=== PATIENT | male | born 1980 | race Caucasian/White ===

== ENCOUNTER 2018-02-22 21:51 | Emergency (ER) | payer OTHER, SELFPAY ==
[2018-02-22 21:58] VITALS: BP 131/95; PULSE 69; RESP 12; TEMP 37.1; O2SAT 99; BMI 17.4
--- NOTE | 2018-02-22 22:06 | ED_ITS ---
HPI - Seizure General Chief Complaint: Seizure Stated Complaint: Seizure Time Seen by Provider: 02/22/18 21:53 Source: patient Mode of arrival: EMS Limitations: no limitations History of Present Illness HPI Narrative: Patient is a 37-year-old male with a stated history of seizures. He states that he is not currently on any seizure medications because he states that they happen so infrequently that no provider has ever put him on them. He states that he has been evaluated multiple times by neurologist. He states that they have told him that he is having seizures but they do not have a specific etiology or diagnosis. He states that normally he has seizures that he does not remember. He states that today he was standing in line at the store when his right hand started to shake which then made his entire body shake. He states that he remembered the entire event. Had no loss of conscious. He states that he did bite the left side of his tongue. No loss of bowel or bladder. He feels like the situation lasted 30 sec or less. He was alert and oriented during the entire event and did not seem to have a postictal event afterwards. He was evaluated by the providers over on [facility]. Review of Systems Constitutional Reports body ache(s), Denies chills, Denies fatigue, Denies fever(s), Denies frequent falls, Denies headache(s) and Denies malaise Eyes Denies blurry vision and Denies diplopia ENT Ears, Nose, Mouth, and Throat: Denies vertigo, Denies dizziness, Denies headache (s) and Denies disequilibrium Cardiovascular Denies chest pain, Denies syncope and Denies dyspnea Respiratory Denies cough and Denies dyspnea Gastrointestinal Gastrointestinal: Denies abdominal pain, Denies nausea and Denies vomiting Musculoskeletal Denies tingling Comments: Muscle soreness ?all over? Integumentary/Breasts Denies lesions and Denies rash Neurologic Denies abnormal speech, Denies behavioral changes, Denies vertigo, Denies dizziness, Denies syncope, Denies frequent falls, Denies headache(s), Denies radicular pain, Reports convulsions, Reports seizure-like activity, Denies tingling, Denies paresthesias, Reports tremor(s) and Denies disequilibrium Psychiatric Denies behavioral changes Endocrine Denies fatigue Hematologic/Lymphatic Denies easy bleeding and Denies easy bruising [facility] Medical History Seizure-like activity (Acute) Surgical History No pertinent past surgical history (Acute) Social History Smoking Status: Current every day smoker Exam Initial Vital Signs Initial Vital Signs: Vital Signs Temperature 98.7 F 02/22/18 21:58 Pulse Rate 69 02/22/18 21:58 Respiratory Rate 12 02/22/18 21:58 Blood Pressure 131/95 H 02/22/18 21:58 Pulse Oximetry 99 02/22/18 21:58 Const General: cooperative, comfortable, well developed and No acute distress Orientation: alert, awake and oriented x3 HENMT Head: normal to inspection and normocephalic Mouth: other (Possible small abrasion to the left side of his tongue) Resp Effort & Inspection: normal respiratory effort Auscultation: clear to auscultation bilaterally Cardio Rate: regular rate Rhythm: regular rhythm Heart Sounds: no murmurs Pulses: radial pulses present GI Inspection: non-distended Palpation: soft, No firm and No tender Skin Lesions: no lesions Rashes: no rashes Neuro General: alert, awake and oriented x3 Cognition: normal cognition Speech: speech normal Motor: muscle tone normal throughout Sensory Exam: no sensory deficits noted Extrem General: normal to inspection, capillary refill normal and No edema Right upper extremity: normal to inspection Left upper extremity: normal to inspection Right lower extremity: normal to inspection Left lower extremity: normal to inspection Psych Appearance: grossly normal and well kempt Course Orders Ordered: ED Orders 02/22/18 22:00 Basic Metabolic Panel Stat Complete Blood Count AUTO DIFF Stat Vital Signs - 8 hr 02/22/18 21:58 02/22/18 22:08 02/22/18 22:39 Temperature 98.7 F Pulse Rate 69 68 20 L Respiratory Rate 12 14 19 Blood Pressure 131/95 H Blood Pressure [Right Arm] 128/89 139/80 Pulse Oximetry 99 99 100 MDM - Seizure Lab Data Attestation: I reviewed the patient's lab results. Result diagrams: 02/22/18 22:00 02/22/18 22:00 Lab Results 02/22/18 02/22/18 Range/Units 22:00 22:00 WBC 7.4 (4.5-11.0) X10^3/uL RBC 4.23 L (4.5-5.9) X10^6/uL Hgb 13.8 (13.5-17.5) g/dL Hct 39.7 L (41-53) % MCV 94.0 (80-100) fL MCH 32.6 (26-34) PG MCHC 34.7 (30-36) % RDW 13.4 (11.6-14.8) % Plt Count 108 L (150-400) X10^3/uL Neut % (Auto) 74.3 (50-75) % Lymph % (Auto) 15.3 L (25-40) % [place] % (Auto) 9.6 (3-14) % Eos % (Auto) 0.2 L (2-4) % Baso % (Auto) 0.6 (0-2) % Neut # (Auto) 5500 (6205-5046) /uL Sodium 138 (137-145) mmol/L Potassium 3.3 L (3.4-5.1) mmol/L Chloride 93 L (98-107) mmol/L Carbon Dioxide 32 (22-32) mmol/L BUN 10 (9-20) mg/dL Creatinine 0.70 (0.66-1.25) mg/dL Estimated GFR > 60.0 (>60) mL/min BUN/Creatinine Ratio 14.3 (6-22) Glucose 97 (70-100) mg/dL Calcium 9.9 (8.4-10.2) mg/dL Point of Care Testing Glucose POC 88 ECG Data Attestation: I personally reviewed and interpreted this ECG as follows: Prior ECG tracings: not available for review Interpretation: Sinus rhythm Ventricular rate is 66 Normal axis Normal intervals Normal QRS Normal QTC No ST T wave changes MDM Narrative Medical decision making narrative: Labs unremarkable. EKG is unremarkable. Has a normal neurologic exam here in the emergency department. Patient states that he feels ?normal? unsure if what he experienced today was actually a seizure. He did bite his tongue however did not have any loss of consciousness and did not seem like he was postictal afterwards. Unsure as to exact at seizure history. States that he has been evaluated by Neurology several times in the past but does no diagnosis. He states that normally he has 1-2 seizures a year. He states that his last seizure was greater than 1 year ago. Secondary to this I will hold on starting any anti seizure medication given the infrequency, the lack of exact etiology of his symptoms and the uncertainty if whether not the event that happened today was actually a seizure. Hold on further workup. Patient was instructed that [place] to discuss the indications of going back to see neurology. He was given return precautions. He expressed understanding and agreement with plan Discharge Plan Departure Patient Disposition: Home Clinical Impression: Seizure-like activity Instructions: DI for Seizure (Not Epilepsy/Seizure Disorder), Seizure Safety Precautions-Adult Activity Restrictions/Additional Instructions: I recommend that [place] and to discuss the indications for referral to see Neurology. Your not to drive into your cleared by your primary care doctor. Return to the emergency department for any new or worsening symptoms
[2018-02-22 22:08] VITALS: BP 128/89; PULSE 68; RESP 14; O2SAT 99
[2018-02-22 22:08] LABS: Add Manual Diff / Slide Review NO; Basophils Percent Auto 0.6 % (0-2); Eosinophils Percent Auto 0.2 % (2-4); Hematocrit 39.7 % (41-53); Hemoglobin 13.8 g/dL (13.5-17.5); Lymphocytes Percent Auto 15.3 % (25-40); Mean Corpuscular HGB Conc 34.7 % (30-36); Mean Corpuscular Hemoglobin 32.6 PG (26-34); Monocytes Percent Auto 9.6 % (3-14); Neutrophils Absolute Auto 5500 /uL (3000-5900); Neutrophils Percent Auto 74.3 % (50-75); Platelet Count 108 X10^3/uL (150-400); Red Blood Cell Count 4.23 X10^6/uL (4.5-5.9); Red Cell Distribution Width 13.4 % (11.6-14.8); White Blood Cell Count 7.4 X10^3/uL (4.5-11.0)
[2018-02-22 22:19] LABS: BUN Creatinine Ratio 14.3 (6-22); Blood Urea Nitrogen 10 mg/dL (9-20); Calcium 9.9 mg/dL (8.4-10.2); Carbon Dioxide 32 mmol/L (22-32); Chloride 93 mmol/L (98-107); Estimated Glomerular Filt Rate > 60.0 mL/min (>60); Glucose 97 mg/dL (70-100); HEMOLYSIS < 15 (0-50); Potassium 3.3 mmol/L (3.4-5.1); Sodium 138 mmol/L (137-145)
[2018-02-22 22:39] VITALS: BP 139/80; PULSE 78; RESP 19; O2SAT 100
== END 2018-02-22 23:15 | disposition home or self-care (01) ==
PROVIDERS: Emergency Provider Emergency Medicine
DX: R56.9 Unspecified convulsions (principal)
CPT/HCPCS: 80048; 85025; 93005; 93041; 99283; 99284